=== PATIENT | male | born 1945 | race Caucasian/White ===

== ENCOUNTER 2017-09-16 15:52 | Emergency (ER) | payer MEDICARE, OTHER ==
[~2017-09-16] VITALS: Ht 175.3 cm; Wt 71.7 kg
[~2017-09-16 15:52] MED LIST: ALLOPURINOL; ALPRAZOLAM 0.0.25 M1; AMBIEN 5 MG TABL5 M1; BENICAR 5 MG5 MG; CLINORIL200 MG; CRESTOR20 MG; IBUPROFEN 800800 MG PO; PEPCID40 MG; PLAVIX 75 MG TA75 M1; PREVALITE PACKE1 PKT; RANITIDINE
[2017-09-16] MEDS ORDERED: SYNTHROID75 MCG PO (16:10)
[2017-09-16] MEDS ORDERED: KEFLEX500 M1 PO (16:18)
[2017-09-16 16:28] VITALS: BP 109/57
== END 2017-09-16 16:22 | disposition home or self-care (01) ==
LOC: M.ERS 15:52
DX: S91.332A Puncture wound without foreign body, left foot, initial encounter (principal); I10 Essential (primary) hypertension; M10.9 Gout, unspecified; Z88.8 Allergy status to other drugs, medicaments and biological substances; X58.XXXA Exposure to other specified factors, initial encounter; Y93.89 Activity, other specified; Y92.89 Other specified places as the place of occurrence of the external cause; Y99.8 Other external cause status

== ENCOUNTER 2018-03-24 09:05 | Emergency (ER) | payer MEDICARE, OTHER ==
[~2018-03-24] VITALS: Ht 175.3 cm; Wt 74.8 kg
[~2018-03-24 09:05] MED LIST changes: +KEFLEX500 M1 PO; +SYNTHROID75 MCG PO
[2018-03-24 09:21] LABS: ABSOLUTE BASOPHILS 0.1 thou/uL (0.0-0.2); ABSOLUTE EOSINOPHILS 0.2 thou/uL (0.0-0.7); ABSOLUTE LYMPHOCYTES 1.2 thou/uL (0.8-5.3); ABSOLUTE MONOCYTES 0.7 thou/uL (0.0-1.2); ABSOLUTE NEUTROPHILS 3.9 thou/uL (1.6-8.1); BASOPHILS 1.2 %; EOSINOPHILS 3.1 %; HEMATOCRIT 40.1 % (42.0-52.0); HEMOGLOBIN 13.8 gm/dL (14.0-18.0); LYMPHOCYTES 20.2 %; MCH 32.5 pg (26.0-34.0); MCHC 34.3 g/dL (28.0-37.0); MCV 94.6 fL (80.0-100.0); MONOCYTES 11.6 %; MPV 9.7 fl. (7.2-11.1); NUCLEATED RBCS 0 /100WBC; PLATELET COUNT* 179 thou/uL (150-400); POLYS 63.9 %; RBC 4.24 mil/uL (4.50-6.00); RDW-CV 13.9 % (10.5-14.5); WBC 6.1 thou/uL (4.0-11.0)
[2018-03-24 09:39] LABS: APTT 27.1 Seconds (25.0-31.3); INR 1.1
[2018-03-24 09:42] LABS: ANION GAP 7 mmol/L (7-16); BUN 24 mg/dL (7-18); CALCIUM 8.6 mg/dL (8.5-10.1); CHLORIDE 100 mmol/L (98-107); CO2 33 mmol/L (21-32); CREATININE 1.6 mg/dL (0.6-1.3); GLUCOSE 75 mg/dL (70-99); POTASSIUM 3.4 mmol/L (3.5-5.1); SODIUM 140 mmol/L (136-145)
[2018-03-24 10:01] LABS: ALBUMIN 3.8 g/dL (3.4-5.0); ALKALINE PHOSPHATASE 90 U/L (46-116); CK-MB MASS 2.8 ng/mL (<0.5-3.6); LIPASE 271 U/L (73-393); MAGNESIUM 1.8 mg/dL (1.8-2.4); NT-PRO BRAIN NAT PEPTIDE 183 pg/mL (<300); SGOT 26 U/L (15-37); SGPT 28 U/L (30-65); TOTAL BILIRUBIN 0.8 mg/dL (<0.1-1.0); TOTAL PROTEIN 6.5 g/dL (6.4-8.2); TROPONIN-I LEVEL <0.06 ng/mL (<0.06)
[2018-03-24 10:23] VITALS: BP 158/87
--- NOTE | 2018-03-25 13:36 | EKG ---
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 : 1945 Requested By: Dany Grimaldo Order Number: [id number] MD: Sree Storm Measurements Intervals [place] Rate: 57 P: 47 CA: 158 QRS: 59 QRSD: 103 T: 66 QT: 436 QTc: 425 Interpretive Statements Sinus rhythm Ventricular trigeminy Probable left atrial enlargement RSR' in V1 or V2 septal infarct, age indeterminate Compared to ECG 06/03/2012 15:40:10 Ventricular premature complex(es) now present RSR' in V1 or V2 now present Electronically Signed On 03-25-2018 13:36:14 MODEL SET ARTIST by Sree Storm [email or web address] <ELECTRONICALLY SIGNED> By: Sree Storm MD, FAC 03/25/18 1336 0910 0910 Sree Storm MD, [facility] /EPI
== END 2018-03-24 10:23 | disposition home or self-care (01) ==
LOC: M.ERS 09:05
PROVIDERS: Family Medicine
DX: R07.89 Other chest pain (principal); I10 Essential (primary) hypertension; M10.9 Gout, unspecified; Z88.8 Allergy status to other drugs, medicaments and biological substances

== ENCOUNTER 2019-09-28 20:41 | Emergency (ER) | payer MEDICARE, OTHER ==
[~2019-09-28] VITALS: Ht 175.3 cm; Wt 72.6 kg
[2019-09-28] MEDS ORDERED: ATACAND4 MG PO (20:59)
[2019-09-28] MEDS ORDERED: METROGEL-VAGINA70 GM VAG (21:00)
[2019-09-28] MEDS ORDERED: TEMAZEPAM30 MG PO (21:01)
[2019-09-28] MEDS ORDERED: ZALEPLON 10 MG10 M1 PO (21:01)
[2019-09-28] MEDS ORDERED: PREVALITE PACKET4 GM PO (21:02)
[2019-09-28] MEDS ORDERED: SULINDAC 150 M150 MG PO (21:02)
[2019-09-28] MEDS ORDERED: MITIGARE0.6 MG PO (21:02)
[2019-09-28 21:10] LABS: ABSOLUTE BASOPHILS 0.1 thou/uL (0.0-0.2); ABSOLUTE EOSINOPHILS 0.1 thou/uL (0.0-0.7); ABSOLUTE LYMPHOCYTES 1.8 thou/uL (0.8-5.3); ABSOLUTE MONOCYTES 0.7 thou/uL (0.0-1.2); ABSOLUTE NEUTROPHILS 3.6 thou/uL (1.6-8.1); BASOPHILS 1.1 %; EOSINOPHILS 1.7 %; HEMATOCRIT 37.5 % (42.0-52.0); HEMOGLOBIN 13.3 gm/dL (14.0-18.0); LYMPHOCYTES 29.6 %; MCH 32.7 pg (26.0-34.0); MCHC 35.5 g/dL (28.0-37.0); MCV 92.1 fL (80.0-100.0); MONOCYTES 10.5 %; MPV 9.4 fl. (7.2-11.1); NUCLEATED RBCS 0 /100WBC; PLATELET COUNT* 162 thou/uL (150-400); POLYS 57.1 %; RBC 4.08 mil/uL (4.50-6.00); RDW-CV 14.5 % (10.5-14.5); WBC 6.3 thou/uL (4.0-11.0)
[2019-09-28 21:19] LABS: CALCIUM 8.7 mg/dL (8.5-10.1); CREATININE 1.6 mg/dL (0.6-1.3); POTASSIUM 3.5 mmol/L (3.5-5.1)
[2019-09-28 21:29] LABS: ALBUMIN 3.9 g/dL (3.4-5.0); MAGNESIUM 2.1 mg/dL (1.8-2.4); TOTAL BILIRUBIN 0.7 mg/dL (<0.1-1.0); TOTAL PROTEIN 6.7 g/dL (6.4-8.2)
[2019-09-28 21:50] LABS: URINE BILIRUBIN NEGATIVE (Negative); URINE BLOOD NEGATIVE (Negative); URINE CLARITY CLEAR; URINE COLOR YELLOW; URINE GLUCOSE-RANDOM NEGATIVE (Negative); URINE KETONES NEGATIVE (Negative); URINE LEUKOCYTES-REFLEX NEGATIVE (Negative); URINE NITRITE-REFLEX NEGATIVE (Negative); URINE PROTEIN NEGATIVE (Negative); URINE SPECIFIC GRAVITY 1.015 (1.005-1.030); URINE UROBILINOGEN 0.2 E.U./dl (0.2-1.0)
[2019-09-28 22:22] LABS: PROTIME 10.6 Seconds (9.20-11.50)
[2019-09-28] MEDS ORDERED: PRILOSEC OTC20 MG PO (23:07)
[2019-09-28] MEDS ORDERED: CARAFATE 1 GM TA1 GM PO (23:07)
[2019-09-28] MEDS ORDERED: CATAPRES0.1 MG PO (23:08)
[2019-09-28 23:25] VITALS: BP 154/88
--- NOTE | 2019-09-30 10:37 | EKG ---
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: : 1945 Requested By: Sydnie Manzanares Order Number: [id number] MD: Sree Storm Measurements Intervals [place] Rate: 60 P: 39 MI: 144 QRS: 36 QRSD: 106 T: 48 QT: 454 QTc: 454 Interpretive Statements Sinus rhythm rsr' in v1 Compared to ECG 03/24/2018 09:10:24 Ventricular premature complex(es) no longer present Electronically Signed On 09-30-2019 10:37:25 CDT by Sree Storm [email or web address] <ELECTRONICALLY SIGNED> By: Sree Storm MD, [facility] 09/30/19 1037 46 46 Sree Storm MD, [facility] /EPI
== END 2019-09-28 23:26 | disposition home or self-care (01) ==
LOC: M.ERS 20:41
PROVIDERS: Emergency Medicine
DX: I10 Essential (primary) hypertension (principal); K30 Functional dyspepsia; M10.9 Gout, unspecified; G25.81 Restless legs syndrome; Z90.49 Acquired absence of other specified parts of digestive tract; Z95.5 Presence of coronary angioplasty implant and graft; Z88.8 Allergy status to other drugs, medicaments and biological substances

== ENCOUNTER 2019-10-16 18:09 | Emergency (ER) | payer MEDICARE, OTHER | END 2019-10-16 22:25 | disposition short-term general hospital (02) | LOC: M.ERS 18:09 | DX: H34.232 Retinal artery branch occlusion, left eye (principal); I65.23 Occlusion and stenosis of bilateral carotid arteries; I10 Essential (primary) hypertension; M10.9 Gout, unspecified; G25.81 Restless legs syndrome; Z88.8 Allergy status to other drugs, medicaments and biological substances; Z79.899 Other long term (current) drug therapy; Z90.49 Acquired absence of other specified parts of digestive tract ==

== ENCOUNTER → 2021-05-11 | Outpatient (CLI) | payer MEDICARE, OTHER ==
[~2021-05-11] VITALS: Ht 175.3 cm; Wt 70.3 kg
[2021-05-11] VITALS (7 sets, daily range): BP systolic 11–199; BP diastolic 70–107
[~2021-05-11] MED LIST changes: +ALLOPURINOL 10100 M3 PO; +ATACAND4 MG PO; +CARAFATE 1 GM TA1 GM PO; +CATAPRES0.1 MG PO; +CHILDREN'S ASPI81 MG PO; +CRESTOR40 MG PO; +FE C PLUS TABL1 EACH PO; +HYALURONIC ACID MUCOUS MEM; +K2 PLUS D3 TAB1 EACH PO; +METROGEL-VAGINA70 GM VAG; +MITIGARE0.6 MG PO; +NUVESSA5 GM TOP; +PLAVIX 75 MG TA75 MG PO; +PREVALITE PACKET4 GM PO; +PRILOSEC OTC20 MG PO; +PROBIOTIC BLEN1 EAC1 PO; +PROTONIX40 M2 PO; +SLOW-MAG64 M1 PO; +SULINDAC 150 M150 MG PO; +SYNTHROID100 MC1 PO; -SYNTHROID75 MCG PO; +TEMAZEPAM30 MG PO; +VITAMIN D350 MCG PO; +XANAX 0.25 MG0.25 MG PO; +ZALEPLON 10 MG10 M1 PO; +ZINC50 M1 PO; +[UNRECOGNIZED DRUG - OTHER] PO
[2021-05-11 11:09] LABS: HEMOGLOBIN 13.5 gm/dL (14.0-18.0); MCH 31.8 pg (26.0-34.0); MCHC 34.7 g/dL (28.0-37.0); MCV 91.7 fL (80.0-100.0); MPV 8.9 fl. (7.2-11.1); RBC 4.25 mil/uL (4.50-6.00); WBC 6.9 thou/uL (4.0-11.0)
[2021-05-11 11:17] LABS: APTT 26.8 Seconds (25.0-31.3); PROTIME 10.7 Seconds (9.20-11.50)
--- NOTE | 2021-05-11 11:29 | EKG ---
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 : 1945 Requested By: Cesar Casillas Order Number: [id number] MD: Cooper Yang Measurements Intervals [place] Rate: 49 P: 38 IA: 159 QRS: 48 QRSD: 103 T: 69 QT: 481 QTc: 435 Interpretive Statements Sinus bradycardia RSR' in V1 or V2, probably normal variant Anterior precordial ST-T abnormality; ischemia must be considered Compared to ECG 10/16/2019 21:37:26 ST (T wave) deviation now present Sinus rate has slowed Electronically Signed On 05-11-2021 11:29:42 CIRCULAR SAWYER STONE by Cooper Yang [email or web address] <ELECTRONICALLY SIGNED> By: Cooper Yang MD, [facility] 05/11/21 1129 1112 1112 Cooper Yang MD, FAC /EPI
[2021-05-11 11:41] LABS: ANION GAP 11 mmol/L (7-16); BUN 19 mg/dL (7-18); CALCIUM 9.1 mg/dL (8.5-10.1); CHLORIDE 92 mmol/L (98-107); CO2 27 mmol/L (21-32); CREATININE 1.4 mg/dL (0.6-1.3); GLUCOSE 92 mg/dL (70-99); POTASSIUM 3.7 mmol/L (3.5-5.1); SODIUM 130 mmol/L (136-145)
[2021-05-11 11:45] LABS: ALBUMIN 4.7 g/dL (3.4-5.0); ALKALINE PHOSPHATASE 112 U/L (46-116); CHOLESTEROL 176 mg/dL (<200); HDL CHOLESTEROL 114 mg/dL (>40); LDL CHOLESTEROL 55 mg/dL (<100); SGOT 30 U/L (15-37); SGPT 44 U/L (30-65); TC:HDL 1.5 Ratio (Not establshd); TOTAL PROTEIN 7.2 g/dL (6.4-8.2); TRIGLYCERIDE 38 mg/dL (<150); VLDL 8 mg/dL (<40)
[2021-05-11 11:53] LABS: SERUM ASSESSMENT CL
--- NOTE | 2021-05-11 17:15 | CARD ---
[address] [address] CARDIAC CATH REPORT Name: MIR SHIPLEY Sandra Room: [facility]#: [id number] Admission: 05/11/21 Attend Phys: Cooper Yang MD, Discharge: Date of : 45 Report #: [id number] THIS REPORT FOR: cc: Geovany Shah MD, Matthew D MD Liston, Michael J. MD [facility] ~ APPROVED REPORT Study performed: 05/11/2021 10:46:33 Patient Details The patient is a 76 year-old male Event Personnel Cesar Casillas Stem Processing Machine Operator, Brittni Almanzar RN RN, Mac Foster SUSTAINABILITY SPECIALIST Monitor, Dianna Giles RTR Scrub Procedures Performed Coronary Angiography Only [id number] CORANG Hemostasis w/ Mynx Indication Valvular heart disease Risk Factors Coronary Artery Disease Previous Procedures/Diagnoses Previous PCI Procedure Narrative A [place] 6 FR sheath was inserted into the right femoral artery. Coronary angiography was performed using coronary diagnostic catheters. The right coronary system was accessed and visualized with a Diagnostic - JR4 catheter. The left coronary system was accessed and visualized with a JL6 6fr catheter. Closure device was deployed with a Fr MynxGrip 6/7F. The patient tolerated the procedure well and there were no complications associated with the procedure. There was no hematoma. Intraoperative Conscious Sedation Sedation start time: 1147 Case end Time: 1218 Fluoro Time: 12.[address] [address] CARDIAC CATH REPORT Name: VIOLETTAMIR Sandra Room: [facility] LALI [facility]#: [id number] Admission: 05/11/21 Attend Phys: Cooper Yang MD, Discharge: Date of : 45 Report #: [id number] Dose: DAP 74505 cGycm2 1013 mGy Contrast Type and Amount: Visipaque 165 mL Coronary Angiography The patient's coronary anatomy is left dominant. Diagnostic Cath Left Main There is no left main. There is a separate ostium for the LAD and circumflex coronary arteries. LAD The left anterior sending coronary artery is heavily calcified in its proximal portion. There is an 80% ostial narrowing. The midportion exhibits a 50% followed by an 80% narrowing. The distal vessel is free of significant disease. Diagonal 1 Small in caliber and mildly plaqued. Diagonal 2 Small to moderate sized vessel that is minimally plaqued. Diagonal 3 Small in caliber and mildly plaqued. Circumflex The circumflex coronary artery exhibits moderate calcification in the proximal portion. There is approximately 60% narrowing in the mid circumflex after the takeoff of a large and branched first obtuse marginal branch. The distal vessel is moderately plaqued and calcified. OM1 The first obtuse marginal branch is a large branch vessel with an 60% ostial narrowing. OM2 The second obtuse marginal branch appears to be free of significant disease. L PDA The left PDA appears to be mildly plaqued but without significant disease. Right Coronary The right coronary artery is a nondominant vessel that is totally occluded proximally. Distal branches are seen to fill by [id number] collaterals. Hemodynamics The aortic pressure is 159/84 mmHg with a mean of 97 mmHg. Conclusion 1. Severe coronary artery disease with high-grade stenosis of the ostial LAD and mid circumflex coronary artery. 2. Nondominant right totally occluded. 3. History of severe aortic stenosis. Recommendations 1. Consider coronary artery bypass grafting to the [place] [address] CARDIAC CATH REPORT Name: MIR SHIPLEY Room: [facility]#: [id number] Admission: 05/11/21 Attend Phys: Cooper Yang MD, Discharge: Date of : 45 Report #: [id number] marginal branches and left PDA. 2. Severe aortic stenosis. Recommend aortic valve replacement. <ELECTRONICALLY SIGNED> By: Cesar Casillas MD, FACC 05/11/211714 14 14Micmarly Casillas MD, FACC /INF
== END | disposition home or self-care (01) ==
LOC: M.CL 10:14
PROVIDERS: Internal Medicine Cardiovascular Disease; ATTEND Internal Medicine
DX: I25.10 Atherosclerotic heart disease of native coronary artery without angina pectoris (principal); I35.0 Nonrheumatic aortic (valve) stenosis; I10 Essential (primary) hypertension; M10.9 Gout, unspecified; Z98.890 Other specified postprocedural states; Z79.899 Other long term (current) drug therapy; Z86.73 Personal history of transient ischemic attack (TIA), and cerebral infarction without residual deficits; Z20.822 Contact with and (suspected) exposure to COVID-19; Z88.8 Allergy status to other drugs, medicaments and biological substances